=== PATIENT | female | born 1985 | race Caucasian/White ===

== ENCOUNTER 2017-02-03 19:41 | Emergency (ER) | payer MEDICAID, OTHER ==
[~2017-02-03] VITALS: Ht 157.5 cm; Wt 65.9 kg
[2017-02-03 19:58] VITALS: Ht 157.5 cm; Wt 65.9 kg
[2017-02-03] MEDS ORDERED: ONDANSETRON (ODT) 4 MG TAB ODT STA (20:24)
--- NOTE | 2017-02-03 20:29 | ERD ---
ER Documentation Chief Complaint Date/Time DATE: 02/03/17 TIME: 20:26 Chief Complaint RIGHT WRIST PAIN, S/P FALL AT THE PARK DENIES KO HPI 31-year-old female presents here in emergency department for complaints of right wrist pain after falling in the park today. Patient described pain as sharp pain, 6/10 scale, is worse with movement, noted some deformity and swelling on affected area. Patient did not take any medications to help with symptoms. Patient does not have any numbness or tingling. Patient denies any other joint pains. ROS All systems reviewed and are negative except as per history of present illness. Medications Home Meds Reported Medications [none] Unknown Strength No Conflict Check 02/03/17 Allergies Allergies: Coded Allergies: No Known Allergy (Unverified , 02/03/17) PMhx/Soc Medical and Surgical Hx: pt denies Medical Hx, pt denies Surgical Hx Hx Alcohol Use: No Hx Substance Use: No Hx Tobacco Use: No Smoking Status: Never smoker FmHx Family History: No coronary disease, No diabetes, No other Physical Exam Vitals Vital Signs Date Time Temp Pulse Resp B/P Pulse Ox O2 Delivery O2 Flow Rate FiO2 02/03/17 19:58 98.0 90 18 120/81 98 Physical Exam GENERAL: The patient is well developed and appropriate for usual state of health, in no apparent distress. CHEST: Clear to auscultation bilaterally. There are no rales, wheezes or rhonchi. HEART: Regular rate and rhythm. No murmurs, clicks, rubs or gallops. No S3 or S4. ABDOMEN: Soft, nontender and nondistended. Good bowel sounds. No rebound or guarding. No gross peritonitis. No gross organomegaly or masses. No Calabrese sign or McBurney point tenderness. BACK: No midline or flank tenderness. EXTREMITIES: Noted swelling deformity on the right wrist area, tenderness on palpation on the ulnar and radial aspect of the right wrist. Equal pulses bilaterally. To do full range of motion of the joints of the right hand without any restriction, able to do full range of motion of the right elbow without any restriction, nontender on palpation on the right hand and the right elbow area. No compartment syndrome noted, good pulses. Full range of motion of other joints of the body. Grossly neurovascularly intact. NEURO: Alert and oriented. Cranial nerves 2-12 intact. Motor strength in all 4 extremities with 5/5 strength. Sensation grossly intact. Normal speech and gait. SKIN: There is no apparent rash or petechia. The skin is warm and dry. HEMATOLOGIC AND LYMPHATIC: There is no evidence of excessive bruising or lymphedema. No gross cervical, axillary, or inguinal lymphadenopathy. Results 24 hrs Current Medications Medications (Trade) Dose Ordered Sig/Rk Route PRN Reason Start Time Stop Time Status Last Admin Dose Admin Morphine Sulfate (morphine) 4 mg ONCE ONCE IM 02/03/17 20:30 02/03/17 20:31 DC 02/03/17 20:42 Ondansetron HCl (Zofran Odt) 4 mg ONCE STAT ODT 02/03/17 20:24 02/03/17 20:26 DC 02/03/17 20:42 Patient was given medication for pain here in emergency department, after treatment, patient verbalized feeling much better. Patient's pain is improved. Zofran was given to prevent vomiting. PROCEDURE: XR Wrist. CLINICAL INDICATION: Injury. Possible fracture. TECHNIQUE: AP, lateral and oblique views of the right wrist were performed. COMPARISON: No prior studies are available for comparison. FINDINGS: Abnormal lucencies and cortical irregularity involving the distal radial epiphysis and metaphysis extending into the radiocarpal joint. The distal ulna is intact as is the distal radial ulnar joint. The carpal bones are intact. The bones appear well mineralized. The joint spaces are well preserved. Diffuse soft tissue swelling is present. RPTAT:HJJR IMPRESSION: Acute, closed, slightly impacted distal radial fracture of the right wrist with intra-articular extension into the radiocarpal joint. Physician Teri Date Time Electronically viewed and signed by Physician Teri on 02/03/2017 21:38 JR/ CC: DINESH GIRALDO NP This patient actually was reviewed by my attending physician, Dr. Sinha who recommended having patient evaluated by outpatient orthopedic in 1-2 days, there is some joint involvement but it is slightly impacted, no reduction necessary at this time as per his recommendation. Patient will be treated for pain no symptoms of compartment syndrome at this time. Patient has good circulation, good pulses of affected area, this sensation of distal extremities , is able to do full range of motion of the joints of the right hand without any injection, able to do full range of motion of the right elbow without any restriction. After receiving patients xray report, a sugartong splint was applied on the patients right wrist pain. After application of the splint, patient has intact sensation and circulation on distal area of the affected joint. Patient does not complain of numbness or tingling after application of the splint. Patient tolerated procedure well. Procedures/MDM Medical Decision Making: Patient's pain is most likely consistent with a impacted fracture of the right distal radius. There is no suspicion for neurovascular compromise. Patient has intact sensation and circulation of the affected extremity, distal and proximal extremity. There is low suspicion for septic arthritis. Patient does not have any fever. No symptoms of compartment syndrome at this time. Strict return to ER precautions for compartment syndrome symptoms or any worsening symptoms, symptoms of neurovascular compromise. Patient works in [employer], is right-hand dominant, was advised to ensure that she gets seen by orthopedic doctor within one to 2 days to avoid decreased function of the affected joint. Disposition: Home. Patient is given prescription for ibuprofen for mild to moderate pain, Bishop for severe pain. Patient was advised to elevate the affected area and apply ice on affected area. Patient is advised to see orthopedic doctor within one to 2 days, was given resources. Patient was advised that if symptoms are worse, numbness, tingling, high fever, unable to move joint, worsening symptoms, to return to emergency department immediately. Otherwise, patient is advised to follow up with the primary care doctor 1-2 days , orthopedic doctor within one to 2 days. Resources were given. Strict return to ER precautions for any worsening symptoms. Departure Diagnosis: Primary Impression: Distal radius fracture, right Encounter type: initial encounter Fracture type: closed Fracture morphology : unspecified fracture morphology Qualified Code: S52.501A - Closed fracture of distal end of right radius, unspecified fracture morphology, initial encounter Condition: Stable Patient Instructions: Fracture, Wrist [General] Additional Instructions: Patient is given prescription for ibuprofen for mild to moderate pain, Bishop for severe pain. Patient was advised to elevate the affected area and apply ice on affected area. Patient is advised to see orthopedic doctor within one to 2 days, was given resources. Patient was advised that if symptoms are worse, numbness, tingling, high fever, unable to move joint, worsening symptoms, to return to emergency department immediately. Otherwise, patient is advised to follow up with the primary care doctor 1-2 days, orthopedic doctor within one to 2 days. Resources were given. Strict return to ER precautions for any worsening symptoms. DINESH GIRALDO NP Feb 03, 2017 20:29
[2017-02-03] MEDS ORDERED: morphine 10 MG INJ IM ONE (20:30)
--- NOTE | 2017-02-03 21:39 | RADRPT ---
PROCEDURE: XR Wrist. CLINICAL INDICATION: Injury. Possible fracture. TECHNIQUE: AP, lateral and oblique views of the right wrist were performed. COMPARISON: No prior studies are available for comparison. FINDINGS: Abnormal lucencies and cortical irregularity involving the distal radial epiphysis and metaphysis ex tending into the radiocarpal joint. The distal ulna is intact as is the distal radial ulnar joint. The carpal bones are intact. The bones appear well mineralized. The joint spaces are well preserved . Diffuse soft tissue swelling is present. RPTAT:HJJR IMPRESSION: Acute, closed, slightly impacted distal radial fracture of the right wrist with intra-articular exte nsion into the radiocarpal joint. Physician Teri Date Time Electronically viewed and signed by Physician Teri on 02/03/2017 21:38 /
[2017-02-03] MEDS ORDERED: IBUP-1542 PO (22:15)
[2017-02-03] MEDS ORDERED: HYDR-906 PO (22:15)
[2017-02-03 22:52] VITALS: BP 114/69; PULSE 71; RESP 18; TEMP 98.4
== END 2017-02-03 22:52 | disposition home or self-care (01) ==
LOC: FTE 19:41
DX: S52.571A Other intraarticular fracture of lower end of right radius, initial encounter for closed fracture (principal); R11.10 Vomiting, unspecified; W18.39XA Other fall on same level, initial encounter; Y92.830 Public park as the place of occurrence of the external cause
CPT/HCPCS: 29125; 73110; 96372; J2270; Z7502; Z7610

== ENCOUNTER 2017-08-24 17:28 | Emergency (ER) | payer MEDICAID ==
[~2017-08-24] VITALS: Ht 157.5 cm; Wt 61.5 kg
[~2017-08-24 17:28] MED LIST: HYDR-906 PO; IBUP-1542 PO
[2017-08-24 17:35] VITALS: Ht 157.5 cm; Wt 61.5 kg
[2017-08-24] MEDS ORDERED: morphine 4 MG/ML VIAL IV STA (17:54)
[2017-08-24] MEDS ORDERED: ONDANSETRON 4 MG INJ IV STA (17:54)
[2017-08-24] MEDS ORDERED: SOD CHLORIDE 0.9% 1,000 ML IV STA (17:54)
[2017-08-24] MEDS ORDERED: IBUPROFEN 600 MG TAB PO ONE (18:00)
[2017-08-24] MEDS ORDERED: ACETAMINOPHEN 325 MG TAB PO ONE (18:00)
[2017-08-24 18:15] LABS: BASOPHILS % 0.2 % (0.0-2.0); EOSINOPHILS % 0.2 % (0.0-7.0); HEMATOCRIT 34.1 % (37.0-47.0); HEMOGLOBIN 11.6 g/dl (12.0-16.0); LYMPHOCYTES # 1.1 10^3/ul (0.8-2.9); LYMPHOCYTES % 5.9 % (15.0-51.0); MEAN CORPUSCULAR HEMOGLOBIN 30.3 pg (29.0-33.0); MEAN PLATELET VOLUME 8.7 fl (7.4-10.4); MONOCYTE # 1.1 10^3/ul (0.3-0.9); MONOCYTES % 5.9 % (0.0-11.0); NEUTROPHIL # 15.6 10^3/ul (1.6-7.5); NEUTROPHILS % 87.1 % (39.0-77.0); PLATELET COUNT 347 10^3/UL (140-415); RED BLOOD COUNT 3.83 10^6/ul (4.20-5.40); RED CELL DISTRIBUTION WIDTH 12.6 % (11.5-14.5); WHITE BLOOD COUNT 17.9 10^3/ul (4.8-10.8)
[2017-08-24 18:20] LABS: ADD UMIC YES; UR ASCORBIC ACID NEGATIVE (NEGATIVE); UR BACTERIA FEW /HPF (NONE SEEN); UR BILIRUBIN (Dip) NEGATIVE (NEGATIVE); UR BLOOD (Dip) 1+ mg/dL (NEGATIVE); UR CLARITY CLOUDY (CLEAR); UR COLOR YELLOW (YELLOW); UR GLUCOSE (Dip) NEGATIVE (NEGATIVE); UR KETONES (Dip) TRACE mg/dL (NEGATIVE); UR LEUKOCYTE ESTERASE (Dip) 3+ Leu/ul (NEGATIVE); UR NITRITE (Dip) NEGATIVE (NEGATIVE); UR RBC 3 /HPF (0-5); UR SPECIFIC GRAVITY (Dip) 1.009 (1.003-1.030); UR SQUAMOUS EPITHELIAL CELL FEW /HPF (FEW); UR TOTAL PROTEIN (Dip) 2+ mg/dl (NEGATIVE); UR UROBILINOGEN (Dip) 2+ mg/dL (NEGATIVE)
--- NOTE | 2017-08-24 18:26 | RADRPT ---
PROCEDURE: CT Abdomen and Pelvis without contrast. CLINICAL INDICATION: Abdominal pain. TECHNIQUE: Routine abdominopelvic CT was performed without intravenous contrast. Radiation dose: CTDIvol (mGy) = 7.5; total DLP (mGy-cm) = 186. One or more of the following dose reduction techniques were used: - Automated exposure control. - Adjustment of the mA and/or kV according to patient size. - Use of iterative reconstruction technique. COMPARISON: None. FINDINGS: Extensive left perinephric inflammation with mild pelviectasis and a possible urothelial thickening without urolithiasis. No bladder stones are seen. Right kidney collecting system are within normal l imits. Small retroperitoneal lymph nodes are not significant by size criteria. Unenhanced liver, gallbladder, biliary system, pancreas, adrenal glands, and spleen are unremarkable . No abnormal bowel wall thickening or dilatation. The appendix is normal. Bilateral tubal occlusion device are in place. Calcified granuloma at the right lung base. IMPRESSION: Extensive left perinephric inflammation and ectasia of the ipsilateral proximal ureter with urotheli al thickening suggesting pyelonephritis. Confirm with urinalysis. No urinary stones are seen. RPTAT: HEKC .Gabino Diaz MD, MD Date Time Electronically viewed and signed by .Gabino Diaz MD, on 08/24/2017 18:25 .C/
--- NOTE | 2017-08-24 18:29 | RADRPT ---
PROCEDURE: XR Chest. CLINICAL INDICATION: Abdominal pain. TECHNIQUE: Single frontal view. COMPARISON: None. FINDINGS: The lungs are clear. The heart size is normal. There is no pleural effusion. There is no pneumothorax. IMPRESSION: 1. Normal chest radiograph. RPTAT: QQ .Michoacano Acuña MD, Date Time Electronically viewed and signed by .Michoacano Acuña MD, on 08/24/2017 18:29 .R/
[2017-08-24 18:31] LABS: INR 1.16; PROTIME 14.8 Sec (12.2-14.2); PT RATIO 1.2
[2017-08-24 18:32] LABS: PARTIAL THROMBOPLASTIN TIME 36.9 Sec (25.0-35.0)
[2017-08-24 18:42] LABS: ALBUMIN 4.1 g/dl (3.3-4.9); ALBUMIN/GLOBULIN RATIO 1.13; BILIRUBIN,INDIRECT 0.5 mg/dl (0-1.1); BILIRUBIN,TOTAL 0.5 mg/dl (0.2-1.3); CALCIUM 8.9 mg/dl (8.4-10.2); CREATININE 1.03 mg/dl (0.44-1.00); POTASSIUM 3.5 mmol/L (3.5-5.1); TOTAL PROTEIN 7.7 g/dl (6.1-8.1)
[2017-08-24 18:44] VITALS: PULSE 95; RESP 17; TEMP 100.7
[2017-08-24] MEDS ORDERED: IBUP-1542 PO (18:49)
[2017-08-24] MEDS ORDERED: CIPR500T4 PO (18:49)
[2017-08-24] MEDS ORDERED: CEFTRIAXONE 1 GM/50 ML (PMX) 50 ML IVPB ONE (19:00)
--- NOTE | 2017-08-24 22:05 | ERD ---
ER Documentation Chief Complaint Date/Time DATE: 08/24/17 TIME: 21:58 Chief Complaint LUQ PAIN X 3 DAYS, FEVER AT HOME AND CURRENTLY, DENIES N/V/D HPI This patient is a 31-year-old otherwise healthy female presenting to the emergency department with complaints of left upper quadrant pain, constantly, sharp in nature, radiating to her back, worse with deep inspiration, associated with fever. She has never had the symptoms in the past. She denies cough, nausea, vomiting, diarrhea, or urinary symptoms. She took Advil at home with mild relief of symptoms. ROS All systems reviewed and are negative except as per history of present illness. Medications Home Meds Active Scripts Ibuprofen* (Motrin*) 600 Mg Tab, 600 MG PO Q6, #30 TAB Prov:PRUDENCIO MORALES PA-C 08/24/17 Ciprofloxacin Hcl* (Ciprofloxacin Hcl*) 500 Mg Tablet, 500 MG PO BID for 7 Days , #14 TAB Prov:PRUDENCIO MORALES PA-C 08/24/17 Hydrocodone/Acetaminophen ([place] 5-325 Tablet) 1 Each Tablet, 1 TAB PO Q6H Y for PAIN, #20 TAB Prov:DINESH GIRALDO GENERATION ENGINEER 02/03/17 Ibuprofen* (Motrin*) 600 Mg Tab, 600 MG PO Q6H Y for PAIN AND OR ELEVATED TEMP, #30 TAB Prov:DINESH GIRALDO GENERATION ENGINEER 02/03/17 Reported Medications [none] Unknown Strength No Conflict Check 02/03/17 Allergies Allergies: Coded Allergies: No Known Allergy (Unverified , 08/24/17) PMhx/Soc Medical and Surgical Hx: pt denies Medical Hx, pt denies Surgical Hx History of Surgery: No Anesthesia Reaction: No Hx Neurological Disorder: No Hx Respiratory Disorders: No Hx Cardiac Disorders: No Hx Psychiatric Problems: No Hx Miscellaneous Medical Probl: No Hx Alcohol Use: No Hx Substance Use: No Hx Tobacco Use: No Smoking Status: Never smoker Physical Exam Vitals Vital Signs Date Time Temp Pulse Resp B/P Pulse Ox O2 Delivery O2 Flow Rate FiO2 08/24/17 18:44 100.7 95 17 100 Room Air 08/24/17 17:35 101.1 117 24 112/67 99 Physical Exam Const: Nontoxic, well-appearing female in mild distress secondary to pain. Head: Atraumatic Eyes: Normal Conjunctiva ENT: Normal External Ears, Nose and Mouth. Neck: Full range of motion..~ No meningismus. Resp: Clear to auscultation bilaterally Cardio: Tachycardic with regular rhythm, no murmurs Abd: Soft, tenderness palpation of the left upper quadrant, but no rebound tenderness or guarding, no McBurney's point tenderness, non distended. Normal bowel sounds Skin: No petechiae or rashes Back: No midline or flank tenderness. No CVA tenderness. Ext: No cyanosis, or edema Neur: Awake and alert Psych: Normal Mood and Affect Result Diagram: 08/24/17180908/24/171809 Results 24 hrs Laboratory Tests Test 08/24/17 18:10 White Blood Count 17.910^3/ul Red Blood Count 3.8310^6/ul Hemoglobin 11.6g/dl Hematocrit 34.1% Mean Corpuscular Volume 89.0fl Mean Corpuscular Hemoglobin 30.3pg Mean Corpuscular Hemoglobin Concent 34.0g/dl Red Cell Distribution Width 12.6% Platelet Count 61815^3/UL Mean Platelet Volume 8.7fl Neutrophils % 87.1% Lymphocytes % 5.9% Monocytes % 5.9% Eosinophils % 0.2% Basophils % 0.2% Nucleated Red Blood Cells % 0.0/100WBC Neutrophils # 15.610^3/ul Lymphocytes # 1.110^3/ul Monocytes # 1.110^3/ul Eosinophils # 0.010^3/ul Basophils # 0.010^3/ul Nucleated Red Blood Cells # 0.010^3/ul Prothrombin Time 14.8Sec Prothrombin Time Ratio 1.2 INR International Normalized Ratio 1.16 Activated Partial Thromboplast Time 36.9Sec Urine Color YELLOW Urine Clarity CLOUDY Urine pH 7.0 Urine Specific [place] 1.009 Urine Ketones TRACEmg/dL Urine Nitrite NEGATIVEmg/dL Urine Bilirubin NEGATIVEmg/dL Urine Urobilinogen 2+mg/dL Urine Leukocyte Esterase 3+Kait/ul Urine Microscopic RBC 3/HPF Urine Microscopic WBC > 182/HPF Urine Squamous Epithelial Cells FEW/HPF Urine Bacteria FEW/HPF Urine Hemoglobin 1+mg/dL Urine Glucose NEGATIVEmg/dL Urine Total Protein 2+mg/dl Sodium Level 134mmol/L Potassium Level 3.5mmol/L Chloride Level 99mmol/L Carbon Dioxide Level 25mmol/L Anion Gap 14 Blood Urea Nitrogen 11mg/dl Creatinine 1.03mg/dl Glucose Level 105mg/dl Calcium Level 8.9mg/dl Total Bilirubin 0.5mg/dl Direct Bilirubin 0.00mg/dl Indirect Bilirubin 0.5mg/dl Aspartate Amino Transf (AST/SGOT) 20IU/L Alanine Aminotransferase (ALT/SGPT) 25IU/L Alkaline Phosphatase 90IU/L Total Protein 7.7g/dl Albumin 4.1g/dl Globulin 3.60g/dl Albumin/Globulin Ratio 1.13 Lipase 26U/L Monoscreen Negative Current Medications Medications (Trade) Dose Ordered Sig/Rk Route PRN Reason Start Time Stop Time Status Last Admin Dose Admin Sodium Chloride (NS) 1,000 ml @ 1,000 mls/hr Q1H STAT IV 08/24/17 17:54 08/24/17 18:53 DC 08/24/17 18:30 Morphine Sulfate (morphine) 4 mg ONCE STAT IV 08/24/17 17:54 08/24/17 17:57 DC 08/24/17 18:29 Ondansetron HCl (Zofran Inj) 4 mg ONCE STAT IV 08/24/17 17:54 08/24/17 17:57 DC 08/24/17 18:29 Acetaminophen (Tylenol Tab) 650 mg ONCE ONCE PO 08/24/17 18:00 08/24/17 18:01 DC 08/24/17 18:30 Ibuprofen 600 mg 600 mg ONCE ONCE PO 08/24/17 18:00 08/24/17 18:01 DC 08/24/17 18:29 Ceftriaxone Sodium (Rocephin) 50 ml @ 100 mls/hr ONCE ONCE IVPB 08/24/17 19:00 08/24/17 19:29 DC 08/24/17 18:46 Procedures/MDM Patient is a 31-year-old female presenting to the emergency department with complaints of left upper quadrant pain. Physical examination does show left upper quadrant tenderness palpation but no other signs for acute abdomen. Fluids, IV morphine, IV Zofran were given in the department. She was also given p.o. Tylenol and ibuprofen. She was given IV ceftriaxone for pyelonephritis. Lab results showed a white blood cell count of 18, consistent with pyelonephritis. Very mild anemia, but not significant. Chemistry panel showed no significant acute abnormalities. Urinalysis was positive for 3+ leukocytes, 2+ protein, consistent with acute pyelonephritis. Chest x-ray showed no acute findings. CT abdomen and pelvis showed left perinephric inflammation consistent with pyelonephritis. After treatment in the department the patient was feeling significantly improved. The patient was given IV antibiotics for acute pyelonephritis. I believe this is an uncomplicated pyelonephritis and I believe the patient is suitable for outpatient management. I discussed this case with supervising physician, Dr. Dakota Aquino, who agreed with the overall assessment, plan, and ED course. Medical decision making was shared with the patient and she agreed. Her questions and concerns were addressed. She was stable at time of discharge. Strict ER return precautions were discussed. Close follow-up with the primary care physician was advised. She was given prescriptions for ciprofloxacin and NSAIDs. PROCEDURE: XR Chest. CLINICAL INDICATION: Abdominal pain. TECHNIQUE: Single frontal view. COMPARISON: None. FINDINGS: The lungs are clear. The heart size is normal. There is no pleural effusion. There is no pneumothorax. IMPRESSION: 1. Normal chest radiograph. RPTAT: QQ .Michoacano Acuña MD, MD Date Time Electronically viewed and signed by .Michoacano Acuña MD, MD on 08/24/2017 18:29 PROCEDURE: CT Abdomen and Pelvis without contrast. CLINICAL INDICATION: Abdominal pain. TECHNIQUE: Routine abdominopelvic CT was performed without intravenous contrast. Radiation dose: CTDIvol (mGy) = 7.5; total DLP (mGy-cm) = 186. One or more of the following dose reduction techniques were used: - Automated exposure control. - Adjustment of the mA and/or kV according to patient size. - Use of iterative reconstruction technique. COMPARISON: None. FINDINGS: Extensive left perinephric inflammation with mild pelviectasis and a possible urothelial thickening without urolithiasis. No bladder stones are seen. Right kidney collecting system are within normal limits. Small retroperitoneal lymph nodes are not significant by size criteria. Unenhanced liver, gallbladder, biliary system, pancreas, adrenal glands, and spleen are unremarkable. No abnormal bowel wall thickening or dilatation. The appendix is normal. Bilateral tubal occlusion device are in place. Calcified granuloma at the right lung base. IMPRESSION: Extensive left perinephric inflammation and ectasia of the ipsilateral proximal ureter with urothelial thickening suggesting pyelonephritis. Confirm with urinalysis. No urinary stones are seen. RPTAT: HEKC .Gabino Diaz MD, MD Date Time Electronically viewed and signed by .Gabino Diaz MD, MD on 08/24/2017 18:25 Departure Diagnosis: Primary Impression: Pyelonephritis Condition: Fair Patient Instructions: Pyelonephritis, Female (Adult) [facility] Usted se banerjee hecho un examen mdico de control que le indica que no est en arabella condicin que requiera tratamiento urgente en el Departamento de Emergencia. Un estudio ms profundo y el tratamiento de gooden condicin pueden esperar sin ningn riesgo hasta que usted sea atendida/o en el consultorio de gooden mdico o arabella cl helena. Es responsabilidad suya arreglar arabella michelle para el seguimiento del naveen. MANEJO DE CONDICIONES NO URGENTES EN EL FUTURO 1) Si usted tiene un mdico de atencin primaria: Usted debera llamar a gooden mdico de atencin primaria antes de venir al departamento de emergencia. Despus de las horas de consultorio, gooden doctor o gooden asociado/a est disponible por telfono. El mdico o enfermero de evangelina en el servicio telefnico puede asesorarle por federico medio para atender el problema, o naveen contrario se puede programar arabella michelle. 2) Si usted no tiene un mdico de atencin primaria: Llame al mdico o clnica de referencia que aparece abajo martinez las horas de consultorio para hacer arabella michelle para que le vean. CLINICAS: [facility] [phone] [facility] [address] [facility] [phone] [facility] [phone] [facility] [phone] [facility] [phone] [phone] Additional Instructions: No mas mejor en 2-3 lopez, regresar. Mas peor en 24 horas, regresear rapidamente. Ir a doctor primario in 5-7 lopez. Usar instrucciones cuando ejrica medicamento. PRUDENCIO MORALES PA-C Aug 24, 2017 22:05
== END 2017-08-24 19:33 | disposition home or self-care (01) ==
LOC: FTE 17:28
DX: N12 Tubulo-interstitial nephritis, not specified as acute or chronic (principal)
CPT/HCPCS: 71010; 74176; 80053; 81001; 83690; 85025; 85610; 85730; 86308; 96365; 96375; J0696; J2270; J2405; J7030; Z7502; Z7610